=== PATIENT | male | born 1930 | race Native Hawaiian/Other Pacific Islander ===

== ENCOUNTER 2017-01-05 16:25 | Emergency (ER) | payer OTHER ==
--- NOTE | 2017-01-05 17:02 | EDPHY ---
H & P Stated Complaint: L shoulder arthroplast yesterday;has hematoma/swelling L midarm/elbow Time Seen by Provider: 01/05/17 16:58 HPI/ROS: HPI: This is a 6-year-old male presents with Chief Complaint: L shoulder arthroplast yesterday;has hematoma/swelling L midarm /elbow Location: Left anterior shoulder, left bicep Quality: Swelling Duration: 1 day Signs and Symptoms: No bleeding, no radiation, no numbness, no weakness, no tingling, no incontinence, no decreased range of motion, + swelling, + pain Timing: Sudden Severity: Moderate Context: Patient reports on 12/24/2016 he had a left total anterior shoulder arthroplasty early by Dr. Александр Diaz. He has been performing occupational therapy primarily pendulum exercises per recommendation of the surgeon. Yesterday evening he noted increased bruising in his life bicep with increased swelling and hardness that has gradually worsened. He called his orthopedic office this morning and they advised him to go to the emergency room to rule out deep venous thrombosis. Patient denies any paresthesias. Patient remains in a shoulder immobilizer per Orthopedic recommendations except to perform occupational therapy exercises. He denies any recent falls, injury. He reports that his pain medications of Percocet are not controlling the pain. Patient has a cardiac history and he is currently on Lovenox in the morning and Coumadin 2.5 mg in the evening as his bridge. Patient reports that he artery has a follow-up appointment Orthopedics scheduled tomorrow at 10:30 a.m.. 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 Circumsision, high cholesterol, HTN, pacemaker/defibrillator Social history: Retired CONSTITUTIONAL: Extremely anxious elderly white male, awake and alert, no obvious distress HEENT: Atraumatic and normocephalic. NECK: supple, no midline tenderness, flexion 45 degrees, extension 45 degrees, right and left lateral flexion 45 degrees. No meningismus. Cardiovascular: Normal S1/S2, regular rate, regular rhythm, without murmur rub or gallop. PULMONARY/CHEST: Symmetrical and nontender. no crepitus. Clear to auscultation bilaterally. Good air movement. No accessory muscle usage. ABDOMEN: Soft, nondistended, nontender, no ecchymosis. PELVIC: no pain with rocking; bilateral hips flexion 125 degrees, extension 30 degrees, with no pain internal rotation and no pain external rotation. BACK: No midline tenderness, no paraspinous spasm, deep tendon reflexes 2/2, no pain with straight leg raise EXTREMITIES: 2/2 radial pulses, SHOULDER: Remains in a shoulder immobilizer. Ecchymosis noted over his right axilla and medial biceps area that is hard and indurated to touch. Able to perform shoulder shrugs without difficulty. RIGHT ELBOW: Full extension to 180, flexion to 150, no tenderness over medial epicondyle, no tenderness over lateral epicondyle, no effusion. Right WRIST: Extension to 70, flexion to 80, radial deviation to 20 degree, ulnar deviation to 30, no scaphoid tenderness, no tenderness over ulnar styloid, no tenderness over radial styloid. no deformities, no clubbing, no cyanosis or edema. NEUROLOGICAL: no focal neuro deficits. GCS 15. Light touch sensation intact. SKIN: Warm and dry, no erythema. no rash. Good capillary refill. 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 Circumsision, high cholesterol, HTN, pacemaker/defibrillator - Social History Smoking Status: Never smoked Constitutional: Initial Vital Signs Temperature (C) 36.7 C 01/05/17 16:30 Heart Rate 76 01/05/17 16:30 Respiratory Rate 18 01/05/17 16:30 Blood Pressure 130/81 H 01/05/17 16:30 O2 Sat (%) 95 01/05/17 16:30 O2 Delivery Mode Nasal Cannula O2 (L/minute) 3 Allergies/Adverse Reactions: Heparin Analogues [Heparin Agents] Allergy (Severe, Verified 01/05/17 16:28) Unknown morphine [Morphine] Allergy (Mild, Verified 01/05/17 16:28) HYPERACTIVE Penicillins Allergy (Verified 01/05/17 16:28) Rash Home Medications: Medication Instructions Recorded Acetamn/Diphenhydramine 500/25 1 each PO HS 10/07/13 [Tylenol PM (*)] Simvastatin [Zocor] 40 mg PO DAILY18 12/08/14 Carvedilol [Coreg (*)] 12.5 mg PO BIDMEAL 01/21/16 Digoxin [Lanoxin 250 mcg (RX)] 250 mcg PO DAILY10 01/21/16 Acetaminophen [Tylenol 325mg (*)] 650 mg PO Q4HRS PRN #0 tab 01/31/16 oxyCODONE/APAP 5/325 [Percocet 1 - 2 tab PO Q4 PRN #0 tab 01/31/16 5/325 (*)] Ertapenem [INVanz] 1 gm IV DAILY #0 vial 02/11/16 Furosemide [Lasix 20 MG (*)] 20 mg PO DAILY #30 tab 02/11/16 Sennosides/Docusate Sodium 1 - 2 tab PO BID #0 tab 02/11/16 [Senokot-S] Warfarin Sodium [Coumadin 1MG (*)] 1 mg PO DAILY AT 4PM #0 tab 02/11/16 HYDROmorphone HCL [Dilaudid 2 mg 2 mg PO Q4 PRN #12 tab 01/05/17 (*)] Medical Decision Making - Diagnostics Imaging Results: Imaging Impressions Extremity Venous Study 01/05/17 16:49 Impression: 1. Large hematoma in left axillary region. 2. Negative for deep vein thrombosis of the left arm. I telephoned results to Luz Dong PA-C at 1935 hours. ED Course/Re-evaluation: Labs, left upper extremity ultrasound, IV medication ordered Given IV Dilaudid, IV Valium and IV Fentanyl with pain relief No signs of neurovascular compromise/tenting of skin/compartment syndrome/ extremities and joints examined above and below area of concern and are neurovascularly intact/brachial plexus injury/thoracic outlet syndrome. Called by ultrasound who advised that there is 7 cm hematoma in the axillary area as well as some edema changes in the bicep but no deep venous thrombosis. 1739: Labs reviewed and INR 1.49 and H&H stable at 35 2025: Spoke with Dr. Almeida, partner for Dr. Diaz, discussed case and findings. Advises that Dr. Diaz has appointment with patient at 10:30 a.m. in the morning if we can give him some Dilaudid and Valium tabs to the tide him over he would be appreciative. Patient is currently residing at [facility] and can be monitored overnight. Differential Diagnosis: Differential diagnosis includes but is not limited to hematoma, hypercoagulability, deep venous thrombosis. - Data Points Laboratory Results: Laboratory Results 01/05/17 17:12 01/05/17 01/05/17 17:12 17:12 WBC 7.97 10^3/uL 10^3/uL (3.80-9.50) RBC 3.78 10^6/uL L 10^6/uL (4.40-6.38) Hgb 12.1 g/dL L g/dL (13.7-17.5) Hct 35.6 % L % (40.0-51.0) MCV 94.2 fL fL (81.5-99.8) MCH 32.0 pg pg (27.9-34.1) MCHC 34.0 g/dL g/dL (32.4-36.7) RDW 13.4 % % (11.5-15.2) Plt Count 204 10^3/uL 10^3/uL (150-400) MPV 9.0 fL fL (8.7-11.7) Neut % (Auto) 81.6 % H % (39.3-74.2) Lymph % (Auto) 11.5 % L % (15.0-45.0) Coffee % (Auto) 4.0 % L % (4.5-13.0) Eos % (Auto) 1.8 % % (0.6-7.6) Baso % (Auto) 0.6 % % (0.3-1.7) Nucleat RBC Rel Count 0.0 % % (0.0-0.2) Absolute Neuts (auto) 6.50 10^3/uL 10^3/uL (1.70-6.50) Absolute Lymphs (auto) 0.92 10^3/uL L 10^3/uL (1.00-3.00) Absolute Monos (auto) 0.32 10^3/uL 10^3/uL (0.30-0.80) Absolute Eos (auto) 0.14 10^3/uL 10^3/uL (0.03-0.40) Absolute Basos (auto) 0.05 10^3/uL 10^3/uL (0.02-0.10) Absolute Nucleated RBC 0.00 10^3/uL 10^3/uL (0-0.01) Immature Gran % 0.5 % % (0.0-1.1) Immature Gran # 0.04 10^3/uL 10^3/uL (0.00-0.10) PT 18.0 SEC H SEC (12.0-15.0) INR 1.49 H (0.83-1.16) Medications Given: Discontinued Medications Diazepam (Valium Injection) 2.5 mg IVP EDNOW ONE Stop: 01/05/17 17:57 Last Admin: 01/05/17 17:59 Dose: 2.5 mg Diazepam (Valium Injection) 2.5 mg IVP EDNOW ONE Stop: 01/05/17 19:51 Last Admin: 01/05/17 19:53 Dose: 2.5 mg Diazepam (Valium) 2 mg PO EDNOW ONE Stop: 01/05/17 20:31 Last Admin: 01/05/17 21:09 Dose: 2 mg Diazepam (Valium 5 Mg Prepack#4) 1 btl TAKEHOME EDNOW ONE Stop: 01/05/17 20:34 Last Admin: 01/05/17 21:09 Dose: 1 btl Fentanyl (Sublimaze) 50 mcg IVP EDNOW ONE Stop: 01/05/17 17:49 Last Admin: 01/05/17 17:51 Dose: 50 mcg Hydromorphone HCl (Dilaudid) 1 mg IVP EDNOW ONE Stop: 01/05/17 17:17 Last Admin: 01/05/17 17:20 Dose: 1 mg Hydromorphone HCl (Dilaudid) 1 mg IVP EDNOW ONE Stop: 01/05/17 19:48 Last Admin: 01/05/17 20:13 Dose: Not Given Hydromorphone HCl (Dilaudid) 2 mg PO EDNOW ONE Stop: 01/05/17 20:27 Last Admin: 01/05/17 20:33 Dose: 2 mg Ondansetron HCl (Zofran) 4 mg IVP EDNOW ONE Stop: 01/05/17 17:22 Last Admin: 01/05/17 17:25 Dose: 4 mg Departure - Departure Disposition: Home, Routine, Self-Care Clinical Impression: Haematoma of axilla following procedure, Status post shoulder surgery Condition: Good Instructions: Hematoma (ED) Additional Instructions: Please put your shoulder in the most comfortable position at the time. Elevate as much as possible. Take Dilaudid and/or Valium as needed for pain and muscle spasm. Please follow-up with Dr. Александр Diaz as previously scheduled tomorrow at 10:30 a.m.. Prescriptions: HYDROmorphone HCL [Dilaudid 2 mg (*)] 2 mg PO Q4 PRN #12 tab PRN Reason: Pain, Severe
[2017-01-05] MEDS ORDERED: HYDROmorphONE/DILAUDID 1 MG/ML INJ ONE (17:16)
[2017-01-05] MEDS ORDERED: HYDROmorphONE/DILAUDID 1 MG/ML INJ IVP ONE ×2 (17:16→19:47)
[2017-01-05] MEDS ORDERED: ONDANSETRON 4 MG/2 ML VIAL IVP ONE (17:21)
[2017-01-05 17:22] LABS: % IMMATURE GRANULYOCYTES 0.5 % (0.0-1.1); ABSOLUTE IMMATURE GRANULOCYTES 0.04 10^3/uL (0.00-0.10); ADD DIFF? NO; ADD MORPH? NO; ADD SCAN? NO; ATYPICAL LYMPHOCYTE FLAG 0 (0-99); FRAGMENT RBC FLAG 0 (0-99); HEMATOCRIT 35.6 % (40.0-51.0); HEMOGLOBIN 12.1 g/dL (13.7-17.5); LEFT SHIFT FLG 0 (0-99); LIPEMIA HEMOLYSIS FLAG 90 (0-99); MEAN CELL VOLUME 94.2 fL (81.5-99.8); PLATELET CLUMPS FLAG 0 (0-99); PLATELET COUNT 204 10^3/uL (150-400); RED BLOOD CELL COUNT 3.78 10^6/uL (4.40-6.38); RED CELL DISTRIBUTION WIDTH 13.4 % (11.5-15.2)
[2017-01-05 17:32] LABS: INR 1.49 (0.83-1.16)
[2017-01-05] MEDS ORDERED: fentaNYL 100 MCG/2 ML INJ IVP ONE (17:48)
[2017-01-05] MEDS ORDERED: DIAZEPAM 10 MG/2 ML SYR IVP ONE ×2 (17:56→19:50)
[2017-01-05] MEDS ORDERED: HYDROmorphONE/DILAUDID 2 MG TAB PO ONE (20:26)
[2017-01-05] MEDS ORDERED: DIAZEPAM 2 MG TAB PO ONE (20:30)
[2017-01-05] MEDS ORDERED: DIAZEPAM 5 MG PREPACK#4 BTL TAKEHOME ONE (20:33)
[2017-01-05 21:13] VITALS: RESP 18
[2017-01-05 21:15] VITALS: BP 178/79; PULSE 82; TEMP 98.4; O2SAT 94
== END 2017-01-05 21:25 | disposition home or self-care (01) ==
LOC: EDUNIT#
DX: M96.840 Postprocedural hematoma of a musculoskeletal structure following a musculoskeletal system procedure (principal); I10 Essential (primary) hypertension; Z85.528 Personal history of other malignant neoplasm of kidney; Z95.0 Presence of cardiac pacemaker; Z79.01 Long term (current) use of anticoagulants
CPT/HCPCS: 93971; 96374; 96375; 96376; 99285; J1170; J2405; J3010

== ENCOUNTER 2017-02-15 13:50 | Emergency (ER) | payer OTHER ==
[2017-02-15 14:08] VITALS: TEMP 97.7
--- NOTE | 2017-02-15 15:50 | EDPHY ---
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 Circumsision, high cholesterol, HTN, pacemaker/defibrillator - Social History Smoking Status: Never smoked HPI/ROS: Chief complaint: Left upper extremity swelling History of present illness: This is an 86-year-old male who presents to the emergency department for left upper extremity swelling. He has had swelling in this arm since he underwent a left shoulder surgery at the beginning of December. Symptoms have been waxing and waning since then. He does feel taht overall he has had some improvement in symptoms. However, this morning he woke up and his left arm was significantly more swollen than usual. He had appointment with Cardiology today to assess his swelling. Cardiology referred him her for evaluation. He denies other associated signs or symptoms including no abnormal coolness, no paresthesias to the arm, no cough, no trouble breathing , no chest pain. He does have a history of swelling in his left leg that has been chronic in nature. He is supposed to see and lymphedema specialist this Tuesday. Review of systems: A 10 point review of systems was obtained and other than described above was negative (Lyle Ward) - Physical Exam Exam: General Appearance: Alert and no distress. Eyes: Pupils equal and round no injection. Respiratory: Chest is non tender, lungs are clear to auscultation. Cardiovascular: Regular rate and rhythm. Radial pulses are 2+ bilaterally. Capillary refill is brisk in the left hand. Gastrointestinal: Abdomen is soft and non tender, no masses, bowel sounds normal. Musculoskeletal: Significant edema to the left upper extremity. Skin: No rashes or lesions. Neurological: Sensation intact throughout the left upper extremity. (Lyle Ward ) Constitutional: Initial Vital Signs Temperature (C) 36.5 C 02/15/17 14:07 Heart Rate 76 02/15/17 14:07 Respiratory Rate 16 02/15/17 14:07 Blood Pressure 170/99 H 02/15/17 14:07 O2 Sat (%) 95 02/15/17 14:07 O2 Delivery Mode Room Air Allergies/Adverse Reactions: Heparin Analogues [Heparin Agents] Allergy (Severe, Verified 01/05/17 16:28) Unknown morphine [Morphine] Allergy (Mild, Verified 01/05/17 16:28) HYPERACTIVE Penicillins Allergy (Verified 01/05/17 16:28) Rash Home Medications: Medication Instructions Recorded Acetamn/Diphenhydramine 500/25 1 each PO HS 10/07/13 [Tylenol PM (*)] Simvastatin [Zocor] 40 mg PO DAILY18 12/08/14 Carvedilol [Coreg (*)] 12.5 mg PO BIDMEAL 01/21/16 Digoxin [Lanoxin 250 mcg (RX)] 250 mcg PO DAILY10 01/21/16 Acetaminophen [Tylenol 325mg (*)] 650 mg PO Q4HRS PRN #0 tab 01/31/16 oxyCODONE/APAP 5/325 [Percocet 1 - 2 tab PO Q4 PRN #0 tab 01/31/16 5/325 (*)] Furosemide [Lasix 20 MG (*)] 20 mg PO DAILY #30 tab 02/11/16 Sennosides/Docusate Sodium 1 - 2 tab PO BID #0 tab 02/11/16 [Senokot-S] Warfarin Sodium [Coumadin 1MG (*)] 1 mg PO DAILY AT 4PM #0 tab 02/11/16 HYDROmorphone HCL [Dilaudid 2 mg 2 mg PO Q4 PRN #12 tab 01/05/17 (*)] Medical Decision Making - Diagnostics Imaging: Discussed imaging studies w/ call center trainer Radiologist ED Course/Re-evaluation: Patient seen under the supervision of my secondary supervising physician Dr. Maurice García. Patient presents to the emergency department for evaluation of worsening left arm swelling. His arm is neurovascularly intact. Ultrasound is obtained and negative for DVT. A fluid collection that has been previously seen was again seen but is decreasing in size. This appears to be baseline for patient for the last few months. I do not believe he warrants further emergency department intervention or inpatient management. He is discharged. He does have an appointment with a lymphedema specialist this week. I have encouraged him to keep this appointment. Return precautions are given. Patient voiced understanding and agreement with plan. (EdLyle) I did not see this patient while he was in the emergency department. However his care was discussed with the PA while the patient was in the department. I agree with treatment plan and management. I am the secondary supervising physician (Maurice García) Differential Diagnosis: Included but not limited to thromboembolic disease, infections including abscess , lymphedema, arterial occlusion (EdLyle) Departure - Departure Disposition: Home, Routine, Self-Care Clinical Impression: Left arm swelling Condition: Good Instructions: Edema (ED) Additional Instructions: Follow-up with your primary care doctor for continued evaluation and care You can follow up with our wound care center and discuss lymphedema treatment with them at [phone] If symptoms worsen or new symptoms develop return to the emergency room for recheck Referrals: RIA,UNKNOWN [Other] - As per Instructions [facility],. [Clinic] - As per Instructions Edmond Nuñez DO [Medical Doctor] - As per Instructions
[2017-02-15 16:20] VITALS: BP 136/63; PULSE 78; RESP 18; O2SAT 96
== END 2017-02-15 16:19 | disposition home or self-care (01) ==
DX: M79.89 Other specified soft tissue disorders (principal); I10 Essential (primary) hypertension; Z79.01 Long term (current) use of anticoagulants; Z85.528 Personal history of other malignant neoplasm of kidney; Z95.0 Presence of cardiac pacemaker

== ENCOUNTER 2017-04-19 15:46 | Emergency (ER) | payer OTHER ==
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
[2017-04-19 17:27] VITALS: TEMP 98.1; O2SAT 94
[2017-04-19 19:06] VITALS: BP 145/89; PULSE 85; RESP 16
== END 2017-04-19 19:03 | disposition home or self-care (01) ==
LOC: EDUNIT#
PROC: 0HQKXZZ Repair Right Lower Leg Skin, External Approach (ICD-10-PCS; principal; 2017-04-19)
DX: S29.9XXA Unspecified injury of thorax, initial encounter (principal); S81.011A Laceration without foreign body, right knee, initial encounter; I10 Essential (primary) hypertension; Z85.528 Personal history of other malignant neoplasm of kidney; Z79.01 Long term (current) use of anticoagulants; Z95.0 Presence of cardiac pacemaker; V49.40XA Driver injured in collision with unspecified motor vehicles in traffic accident, initial encounter; Y92.410 Unspecified street and highway as the place of occurrence of the external cause; Y93.89 Activity, other specified

== ENCOUNTER 2017-07-19 11:36 | Emergency (ER) | payer OTHER ==
[2017-07-19 13:55] LABS: PLATELET COUNT 136 10^3/uL (150-400)
[2017-07-19 14:11] LABS: INR 3.2 (0.83-1.16); PROTIME(PATIENT) 32.6 SEC (12.0-15.0)
--- NOTE | 2017-07-19 14:20 | CPEKG ---
Heart Rate: 62 RR Interval: 968 P-R Interval: 372 QRSD Interval: 158 QT Interval: 424 QTC Interval: 431 P Cook Sta: 0 QRS Cook Sta: 164 T Wave Cook Sta: -6 EKG Severity - ABNORMAL ECG - EKG Impression: VENTRICULAR-PACED COMPLEXES EKG Impression: FIRST DEGREE AV BLOCK EKG Impression: NONSPECIFIC INTRAVENTRICULAR CONDUCTION DELAY Electronically Signed By: Kaylyn Solitario 19-Jul-2017 15:20:05
--- NOTE | 2017-07-19 15:34 | EDPHY ---
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 Circumsision, high cholesterol, HTN, pacemaker/defibrillator - Social History Smoking Status: Never smoked Time Seen by Provider: 07/19/17 12:11 HPI/ROS: CHIEF COMPLAINT: Diarrhea HISTORY OF PRESENT ILLNESS: This is an 86-year-old gentleman with a complex past medical history presenting for concerns regarding black diarrhea which has been persistent for the last 6 weeks. Patient does take Coumadin for history of multiple thromboembolic events as well as atrial fibrillation. Patient reports that 6 weeks ago he developed diarrhea which has been black in nature since that time. He was taking Pepto-Bismol to help treat the diarrhea. Has had no lightheadedness, or dizziness initially but did feel somewhat lightheaded over the last 2 weeks. No chest pain. No dyspnea on exertion. No syncope. Patient's past medical history significant for renal cell carcinoma with a nephrectomy. 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 He has been on Coumadin since 1998. 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 Patient also has an IVC filter in place. Patient does not report history of congestive heart failure although he has had elevated BNPs in the past. During his diarrheal illness he reports no fevers or chills. No vomiting. No urinary complaints. No travel. No ill contacts. REVIEW OF SYSTEMS: Aside from elements discussed in the HPI, a comprehensive 10-point review of systems was reviewed and is negative. PAST MEDICAL HISTORY: Atrial fibrillation, multiple DVTs, hypercoagulable state , HIT. Pacemaker, defibrillator. Left shoulder surgery 8 months ago. SOCIAL HISTORY: Nonsmoker. No alcohol. Received some of his care at the [facility]. [place] VITAL SIGNS Reviewed by me. GENERAL: Very pleasant, well-developed well-nourished male. No respiratory distress. HEENT: Atraumatic. Eyes: No icterus, no injection. Mouth: moist mucous membranes. No erythema or lesions. Neck: supple with no adenopathy. LUNGS: Clear to auscultation bilaterally, no wheezes, rhonchi or rales. CARDIAC: Regular rate and rhythm, no rubs, murmurs or gallops. ABDOMEN: Soft, nontender, nondistended, bowel sounds normal. BACK: No CVA tenderness. RECTAL: No hemorrhoids. Nontender. Small amount of light green stool on the glove. EXTREMITIES: Left upper extremity is in a splint. Watery edema is present in the fingers. Left lower extremity is also in a brace. Right lower extremity swollen, warm to the touch, trace pitting edema. No erythema. NEURO: Alert and oriented, grossly nonfocal. SKIN: Warm and dry, no rash. PSYCHIATRIC: Normal mentation, no agitation. (Kaylyn Solitario) Constitutional: Initial Vital Signs Temperature (C) 36.5 C 07/19/17 11:37 Heart Rate 62 07/19/17 11:37 Respiratory Rate 16 07/19/17 11:37 Blood Pressure 160/101 H 07/19/17 11:37 O2 Sat (%) 97 07/19/17 11:37 O2 Delivery Mode Room Air Allergies/Adverse Reactions: Heparin Analogues [Heparin Agents] Allergy (Severe, Verified 07/19/17 11:43) Unknown morphine [Morphine] Allergy (Mild, Verified 07/19/17 11:43) HYPERACTIVE Penicillins Allergy (Verified 07/19/17 11:43) Rash Home Medications: Medication Instructions Recorded Acetamn/Diphenhydramine 500/25 1 each PO HS 10/07/13 [Tylenol PM (*)] Simvastatin [Zocor] 40 mg PO DAILY18 12/08/14 Carvedilol [Coreg (*)] 12.5 mg PO BIDMEAL 01/21/16 Digoxin [Lanoxin 250 mcg (RX)] 250 mcg PO DAILY10 01/21/16 Warfarin Sodium [Coumadin 1MG (*)] 1 mg PO DAILY AT 4PM #0 tab 02/11/16 Vancomycin [Vancomycin (*)] 125 mg PO Q6 #40 cap 07/19/17 Medical Decision Making - Diagnostics EKG Interpretation: 12-LEAD EKG: Please see the full report in [facility]. My interpretation: Paced rhythm, left bundle branch block (Kaylyn Solitario) ED Course/Re-evaluation: 86-year-old male with a primary complaint of diarrhea for the last 6 weeks. Concerns exist regarding possible melena as the diarrhea is black in color. Stool is negative for occult blood. Suspect the black color may be related to the patient's use of Pepto-Bismol. Further evaluation: Patient has significant swelling of both lower extremities , complaining that the left lower extremity feels heavier than usual and the right lower extremity typically does not have any swelling. INR is therapeutic at 3. Troponin is negative. Patient's BNP is elevated. We will obtain bilateral lower extremity ultrasounds to further evaluate for recurrent thromboembolic disease in the setting of appropriate anticoagulation with Coumadin. Patient tells me he does have a filter. There is an abdominal x -ray dated 2016 which demonstrates an IVC filter. Patient's course discussed briefly with Dr. Nellie Vance from Cardiology. Patient will be placed on Lasix mg to treat for peripheral edema provided the ultrasounds are not positive for DVTs. 3:45 p.m.: Patient's care was assumed by Dr. Keith Garza. We are awaiting ultrasound results, as well as GI pathogen panel results. (Kaylyn Solitario) Differential Diagnosis: Differential diagnosis for the patient's diarrhea was considered including but not limited to gastroenteritis, colitis, diverticulitis, bacterial dysentery, viral diarrhea, medication effect, and malabsorption syndrome. (Kaylyn Solitario) Other Provider: Patient signed out to me at [address] Solitario. US BLE positive for DVT but review of records indicate this has been present on previous US approximately 6 months ago and patient states not new. Patient has IVC filter in place per him , but I cannot find definitive documentation of this. His labs are normal and BNP is elevated but at baseline. Stool cx positive for C.diff which likely is the cause of his diarrhea. I discussed options with him and offered him admission to the hospital but he declines. He would prefer to go home and try oral therapy. He is aware that he is at high risk for complication given his age and co-morbidities. He will follow-up with his PCP for his diarrhea. I see no evidence of sepsis or severe dehydration or abdominal emergency at this time. I ordered a dose of oral vancomycin here in the ED prior to going home, but unfortunately due to a computer error, I ordered the IV formulation. At 2150, I was notified that patient developed some redness to his arm following this medication. On re-examination, there are a few patchy areas of redness confined to the area around the IV site, and no rash outside of this arm. The patient denies itchiness, SOB or other symptoms. I doubt this represents a true allergy, and since oral vancomycin has low systemic absorption, I think this is still the optimal medication for him. We discussed switching the patient to metronidazole but he declines this option. He was treated with oral vancomycin and observed - no adverse reactions noted. (Edmond Garza) - Data Points Laboratory Results: Laboratory Results 07/19/17 13:45 07/19/17 13:45 Microbiology Results: MICROBIOLOGY 07/19/17 15:15 Stool Gastrointestinal Tract Panel (PCR) - Final Clostridium Difficile Detected Medications Given: Discontinued Medications Furosemide (Lasix) 20 mg PO EDNOW ONE Stop: 07/19/17 15:54 Last Admin: 07/19/17 17:02 Dose: 20 mg Vancomycin HCl 1.25 gm/ (Dextrose) 250 mls @ 166.67 mls/hr IV EDNOW ONE PRN Reason: Protocol Stop: 07/19/17 19:45 Last Admin: 07/19/17 18:50 Dose: 250 mls Loperamide HCl ( Imodium) 4 mg PO EDNOW ONE Stop: 07/19/17 18:04 Last Admin: 07/19/17 18:38 Dose: Not Given Vancomycin HCl (Vancocin Oral Liquid) 125 mg PO EDNOW ONE PRN Reason: Protocol Stop: 07/20/17 21:52 Last Admin: 07/19/17 22:22 Dose: 125 mg Departure - Departure Disposition: Home, Routine, Self-Care Clinical Impression: Anticoagulated on Coumadin, History of DVT (deep vein thrombosis), Diarrhea, C. difficile diarrhea Condition: Good Instructions: Vancomycin (By mouth), Acute Diarrhea (ED) Additional Instructions: Follow-up with your primary doctor within 72 hours. Return to the Emergency Department for fever, chest pain, shortness of breath, increasing pain or other worsening of condition. Referrals: CHRISTINE ROLLINS [Other] - As per Instructions Prescriptions: Vancomycin [Vancomycin (*)] 125 mg PO Q6 #40 cap
[2017-07-19] MEDS ORDERED: FUROSEMIDE 20 MG TAB PO ONE (15:53)
[2017-07-19] MEDS ORDERED: LOPERAMIDE HCL 2 MG CAP PO ONE (18:03)
[2017-07-19] MEDS ORDERED: VANCOMYCIN 1.25 GM in D5W 250 ML IV ONE (18:16)
[2017-07-19] MEDS ORDERED: VANCOMYCIN 125 MG/2.5 ML UDL ONE (22:20)
[2017-07-19 22:24] VITALS: BP 166/95
[2017-07-20] MEDS ORDERED: VANCOMYCIN 125 MG/2.5 ML UDL PO ONE (21:51)
== END 2017-07-19 22:50 | disposition home or self-care (01) ==
DX: A04.72 Enterocolitis due to Clostridium difficile, not specified as recurrent (principal); D68.8 Other specified coagulation defects; I10 Essential (primary) hypertension; Z79.01 Long term (current) use of anticoagulants; Z85.528 Personal history of other malignant neoplasm of kidney; Z86.718 Personal history of other venous thrombosis and embolism; Z95.0 Presence of cardiac pacemaker
CPT/HCPCS: 93005; 93970; 96365; 99285; J3370